=== PATIENT | male | born 1960 | race African-American/Black ===

== ENCOUNTER 2022-11-03 10:21 | Emergency (ER) | payer OTHER ==
[~2022-11-03] VITALS: Ht 177.8 cm; Wt 98.9 kg
--- NOTE | 2022-11-03 11:01 | NUR ---
pt BIBA complaining of CP. pt sleeping, Diffcult to arouse, responding to painful stimuli follows commands
--- NOTE | 2022-11-03 11:05 | NUR ---
xray at bedside
--- NOTE | 2022-11-03 11:12 | NUR ---
urine sample collected and sent to lab
--- NOTE | 2022-11-03 11:14 | NUR ---
patient taken to ct via [facility]ap[facility]
[2022-11-03 11:18] LABS: CALCIUM, SERUM 9.7 mg/dL (8.5-10.1); CARBON DIOXIDE 22 mmol/L (21-32); CHLORIDE 100 mmol/L (98-107); GLUCOSE 194 mg/dL (74-106); POTASSIUM 3.9 mmol/L (3.5-5.1); SERUM AMMONIA 11 umol/L (11-32); SODIUM SERUM 137 mmol/L (136-145); UREA NITROGEN, BLOOD 23 mg/dL (7-18)
[2022-11-03 11:21] LABS: ALANINE AMINOTRANSFERASE 36 U/L (12-78); ALBUMIN 3.9 g/dL (3.4-5.0); ALKALINE PHOSPHATASE 62 U/L (46-116); ASPARTATE AMINOTRANSFERASE 25 U/L (15-37); BILIRUBIN,DIRECT 0.1 mg/dL (0.0-0.2); BILIRUBIN,TOTAL 0.3 mg/dL (0.2-1.0); TOTAL PROTEIN, SERUM 7.8 g/dL (6.4-8.2)
[2022-11-03 11:24] LABS: BASOPHILS % (AUTO) 0.6 % (0.0-2.0); EOSINOPHILS % (AUTO) 0.8 % (0.0-6.0); HEMATOCRIT 46 % (39-51); LYMPHOCYTES # (AUTO) 3.4 K/uL (0.8-4.8); MEAN CORPUSCULAR HGB CONC 33 g/dl (31.0-36.0); MEAN CORPUSCULAR VOLUME 97 fL (80-96); MONOCYTES # (AUTO) 0.5 K/uL (0.1-1.30); MONOCYTES % (AUTO) 6.4 % (2.0-12.0); NEUTROPHILS # (AUTO) 3.6 K/uL (1.8-8.9); NEUTROPHILS % (AUTO) 47.2 % (43.0-81.0); PLATELET COUNT (AUTO) 228 K/uL (150-450); RED BLOOD CELL COUNT(AUTO) 4.76 MIL/uL (4.5-6.0); WHITE BLOOD COUNT (AUTO) 7.5 K/uL (4.3-11.0)
[2022-11-03 11:29] LABS: ALCOHOL, BLOOD < 3 mg/dL (0-10)
[2022-11-03 11:49] LABS: BILIRUBIN,URINE NEGATIVE (NEGATIVE); COLOR,URINE YELLOW (YELLOW); LEUKOCYTE ESTERASE ,URINE NEGATIVE (NEGATIVE); NITRITE, URINE NEGATIVE (NEGATIVE); PH,URINE 6.5 (5.0-8.0); PROTEIN,URINE NEGATIVE (NEGATIVE); UGLUCOSE 3+ mg/dL (NEGATIVE); UROBILINOGEN,URINE 0.2 EU/dL (0.2)
[2022-11-03 11:51] LABS: BACTERIA,URINE Rare /HPF (None Seen); RBC,URINE 0-2 /HPF (0-2); SQUAMOUS EPITHELIAL CELL,UR Few /HPF (None Seen); WBC,URINE 0-2 /HPF (0-3)
--- NOTE | 2022-11-03 11:58 | NUR ---
lab reported critical lab. lactic acid 4.3
[2022-11-03 12:02] LABS: THYROID STIMULATING HORMONE 0.794 uIU/mL (0.358-3.74)
[2022-11-03] MEDS ORDERED: PIPERACILLIN /TAZOBACTAM 3.375 G in IV D5W 50 ML IV ONE (12:30)
[2022-11-03] MEDS ORDERED: IV NS 0.9% 1,000 ML BAG IV ONE (12:30)
[2022-11-03] MEDS ORDERED: VANCOMYCIN 1 GM in IV D5W 250 ML IV ONE (12:30)
--- NOTE | 2022-11-03 13:02 | NUR ---
ASIYA [phone] FROM [facility] CALLED FOR UPDATED CLINICALS. FAX TO [phone]
--- NOTE | 2022-11-03 13:26 | NUR ---
critical lab reported. troponin 111
[2022-11-03] MEDS ORDERED: ASPIRIN 300 MG/SUPP.RECT RC ONE ×2 (13:30→13:34)
--- NOTE | 2022-11-03 14:26 | NUR ---
CALL FROM SÁNCHEZ BRADEN CM, PATIENT ACCEPTED AT [facility] BY DR SHAW,REPORT TO [phone]. TRANSPORT WILL BE ARRANGED BY HER
--- NOTE | 2022-11-03 14:27 | NUR ---
lab called with critical results. troponin level 436
[2022-11-03 14:31] VITALS: BP 125/78
--- NOTE | 2022-11-03 14:46 | NUR ---
report given to FLORESITA Rouse at [facility] for continuation of care
--- NOTE | 2022-11-03 14:56 | NUR ---
RECIEVED A CALL FROM ASIYA WOO AND WAS NOTIFIED THAT THE ETA FOR TRANSPORT IS 1600
--- NOTE | 2022-11-03 16:08 | NUR ---
transport at patient's bedside
== END 2022-11-03 16:34 | disposition short-term general hospital (02) ==
LOC: ER 10:23
DX: I21.4 Non-ST elevation (NSTEMI) myocardial infarction (principal); R07.9 Chest pain, unspecified; N17.9 Acute kidney failure, unspecified; E11.65 Type 2 diabetes mellitus with hyperglycemia; R41.82 Altered mental status, unspecified; F12.929 Cannabis use, unspecified with intoxication, unspecified; E87.20 Acidosis, unspecified; I10 Essential (primary) hypertension; Z60.2 Problems related to living alone; Z20.822 Contact with and (suspected) exposure to COVID-19
CPT/HCPCS: 99291; 96365; 96368; 93005; 87040 ×3; 71045; 70450; 82140; 85025; 80048; 83605 ×2; 80076; 85378; 81001; 36415; 84443; 84484 ×3; 87081; 83880; 87426; 80143; 80320; 80307; J3370; J2543; J7060; J7030 ×3; J7050; C9803; G0480

== ENCOUNTER 2024-12-02 09:42 | Emergency (ER) | payer OTHER, MEDICAID ==
[~2024-12-02] VITALS: Ht 172.7 cm; Wt 97.5 kg
[2024-12-02 09:53] VITALS: TEMP 98.1
[2024-12-02 10:38] LABS: PLATELET COUNT (AUTO) 477 K/uL (150-450); RED BLOOD CELL COUNT(AUTO) 4.71 MIL/uL (4.5-6.0); RED CELL DISTRIBUTION WIDTH 14.3 % (11.5-15.0); WHITE BLOOD COUNT (AUTO) 5.6 K/uL (4.3-11.0)
[2024-12-02 10:50] LABS: CALCIUM, SERUM 9.4 mg/dL (8.5-10.1); CREATININE 1.3 mg/dL (0.6-1.3); SODIUM SERUM 133.0 mmol/L (136-145); UREA NITROGEN, BLOOD 24.0 mg/dL (7-18)
[2024-12-02 12:21] VITALS: BP 118/70; O2SAT 99
== END 2024-12-02 11:36 | disposition home or self-care (01) ==
LOC: ER 09:42
DX: M79.662 Pain in left lower leg (principal); R22.42 Localized swelling, mass and lump, left lower limb; M79.605 Pain in left leg; E11.9 Type 2 diabetes mellitus without complications; I10 Essential (primary) hypertension; Z86.69 Personal history of other diseases of the nervous system and sense organs; Z86.73 Personal history of transient ischemic attack (TIA), and cerebral infarction without residual deficits; Z60.2 Problems related to living alone
CPT/HCPCS: 36415; 73590-TC; 80048-TC; 82962-TC; 85025-TC; 93971-TC

== ENCOUNTER 2025-01-05 21:03 | Emergency (ER) | payer OTHER, MEDICAID | END 2025-01-05 23:10 | disposition left against medical advice (07) | LOC: ER 21:28 | DX: Z53.21 Procedure and treatment not carried out due to patient leaving prior to being seen by health care provider (principal) ==

== ENCOUNTER 2025-05-17 16:40 | Inpatient (IN) | payer OTHER, MEDICAID ==
[~2025-05-17] VITALS: Ht 172.7 cm; Wt 90.7 kg
[2025-05-17] MEDS: IV NS 0.9% 1,000 ML BAG IV ONE (17:20)
[2025-05-17 17:35] LABS: PLATELET COUNT (AUTO) 235 K/uL (150-450); RED BLOOD CELL COUNT(AUTO) 5.39 MIL/uL (4.5-6.0); RED CELL DISTRIBUTION WIDTH 13.7 % (11.5-15.0); WHITE BLOOD COUNT (AUTO) 3.8 K/uL (4.3-11.0)
[2025-05-17 17:42] LABS: CALCIUM, SERUM 8.5 mg/dL (8.5-10.1); CREATININE 1.8 mg/dL (0.6-1.3); SODIUM SERUM 121 mmol/L (136-145); UREA NITROGEN, BLOOD 54 mg/dL (7-18)
[2025-05-17 17:54] LABS: ASPARTATE AMINOTRANSFERASE 408 U/L (15-37); TOTAL PROTEIN, SERUM 7.7 g/dL (6.4-8.2)
[2025-05-17 19:58] LABS: APPEARANCE,URINE CLEAR (CLEAR); BLOOD, URINE Moderate Ery/uL (NEGATIVE); LEUKOCYTE ESTERASE ,URINE Negative (NEGATIVE); NITRITE, URINE NEGATIVE (NEGATIVE); UGLUCOSE 250 MG/DL mg/dL (NEGATIVE)
[2025-05-17 20:04] LABS: ADD URINE CULTURE NO; SQUAMOUS EPITHELIAL CELL,UR None Seen /HPF (None Seen)
[2025-05-17] MEDS ORDERED: MAG HYDROX/AL HYDROX/SIMETH 30 ML UDC PO PRN (21:00)
[2025-05-17] MEDS ORDERED: Z GUARD REMEDY 4 OZ OINT TP PRN (21:00)
[2025-05-17] MEDS ORDERED: ONDANSETRON HCL/PF 4 MG/2 ML VIAL IVP PRN (21:00)
[2025-05-17] MEDS ORDERED: MAGNESIUM HYDROXIDE 30 ML UDC PO PRN (21:00)
[2025-05-17] MEDS: IV NS 0.9% 1,000 ML IV PRN (21:40)
[2025-05-17] MEDS: SODIUM POLYSTYRENE SULFONATE 15 G/60 ML BOTTLE PO ONE (21:57)
[2025-05-17 22:00] VITALS: BP 139/87; TEMP 97.5; O2SAT 99
[2025-05-17] MEDS: BLOOD SUGAR DIAGNOSTIC 1 EACH STRIP IN SCH (22:09)
[2025-05-17] MEDS: DEXTROSE 50%-WATER 50 ML DISP.SYRIN IV PRN (22:09)
[2025-05-17] MEDS: ACETAMINOPHEN 325 MG TABLET PO PRN (22:45)
[2025-05-18] VITALS (7 sets, daily range): BP systolic 139–170; BP diastolic 87–104; TEMP 97.5–98.4; O2SAT 96–100
[2025-05-18] MEDS: HYDROCODONE/APAP 5/325MG TABLET PO PRN (01:27)
[2025-05-18] MEDS: hydrALAZINE HCL IV 20 MG VIAL IV PRN (05:23)
[2025-05-18 06:35] LABS: PLATELET COUNT (AUTO) 264 K/uL (150-450); RED BLOOD CELL COUNT(AUTO) 5.53 MIL/uL (4.5-6.0); RED CELL DISTRIBUTION WIDTH 14.0 % (11.5-15.0); WHITE BLOOD COUNT (AUTO) 5.3 K/uL (4.3-11.0)
[2025-05-18] MEDS: PANTOPRAZOLE 40 MG TABLET.DR PO SCH (06:39)
[2025-05-18] MEDS: INSULIN REGULAR, HUMAN 100 UNIT/ML 3 ML VIAL SQ PRN (06:53)
[2025-05-18 08:11] LABS: CALCIUM, SERUM 8.6 mg/dL (8.5-10.1); CREATININE 1.3 mg/dL (0.6-1.3); PHOSPHORUS 3.0 mg/dL (2.5-4.9); SODIUM SERUM 127.0 mmol/L (136-145); UREA NITROGEN, BLOOD 43.0 mg/dL (7-18)
[2025-05-18 08:23] LABS: LDL 17.0 mg/dL (0-99)
[2025-05-18] MEDS: ASPIRIN 81 MG TAB.CHEW PO SCH (08:44)
[2025-05-18] MEDS ORDERED: AMLO-212 PO (09:53)
[2025-05-18] MEDS ORDERED: TRAM50TA PO (09:53)
[2025-05-18] MEDS ORDERED: CLON0.3T PO (09:53)
[2025-05-18] MEDS ORDERED: GABA-532 PO (09:53)
[2025-05-18] MEDS ORDERED: EMPA25TA PO (09:53)
[2025-05-18] MEDS ORDERED: COLC0.6T67 PO (09:53)
[2025-05-18] MEDS ORDERED: OMEP40CA21 PO (09:53)
[2025-05-18] MEDS ORDERED: ATOR80TA PO (09:53)
[2025-05-18] MEDS ORDERED: GLIM2TAB31 PO (09:53)
[2025-05-18] MEDS ORDERED: HYDR-4076 PO (09:53)
[2025-05-18] MEDS ORDERED: ICOS1CAP PO (09:53)
[2025-05-18] MEDS ORDERED: SPIR25TA6 PO (09:53)
[2025-05-18] MEDS ORDERED: LEVE500T20 PO (09:53)
[2025-05-18] MEDS ORDERED: METF-442 PO (09:53)
[2025-05-18] MEDS ORDERED: DOXA4TAB3 PO (09:53)
[2025-05-18] MEDS: SODIUM ZIRCONIUM CYCLOSILICATE 10 GM POWD.PACK PO ONE (10:45)
[2025-05-18 16:48] LABS: CALCIUM, SERUM 8.6 mg/dL (8.5-10.1); CREATININE 1.4 mg/dL (0.6-1.3); SODIUM SERUM 128.0 mmol/L (136-145); UREA NITROGEN, BLOOD 39.0 mg/dL (7-18)
[2025-05-19] VITALS: BP 160/90; TEMP 98.1; O2SAT 97
[2025-05-19 04:00] VITALS: BP 148/89; TEMP 97.7; O2SAT 100
[2025-05-19 07:00] LABS: PLATELET COUNT (AUTO) 257 K/uL (150-450); RED BLOOD CELL COUNT(AUTO) 5.07 MIL/uL (4.5-6.0); RED CELL DISTRIBUTION WIDTH 13.9 % (11.5-15.0); WHITE BLOOD COUNT (AUTO) 4.6 K/uL (4.3-11.0)
[2025-05-19 07:13] LABS: CALCIUM, SERUM 8.5 mg/dL (8.5-10.1); CREATININE 1.4 mg/dL (0.6-1.3); SODIUM SERUM 131.0 mmol/L (136-145); UREA NITROGEN, BLOOD 34.0 mg/dL (7-18)
[2025-05-19 08:00] VITALS: BP 159/90; TEMP 98.2; O2SAT 100
[2025-05-19 12:00] VITALS: BP 178/90; TEMP 97.9; O2SAT 96
[2025-05-19] MEDS: AMLODIPINE BESYLATE 5 MG TABLET PO SCH (15:04)
[2025-05-19 16:00] VITALS: BP 171/93; TEMP 97.8; O2SAT 100
[2025-05-19] MEDS: METFORMIN 500 MG TABLET PO SCH (16:49)
[2025-05-19] MEDS: COLCHICINE 0.6 MG TABLET PO SCH (16:49)
[2025-05-19 20:00] VITALS: BP 159/97; TEMP 98.8; O2SAT 96
[2025-05-19] MEDS: LEVETIRACETAM (250 MG) 250 MG TABLET PO SCH (21:22)
[2025-05-19] MEDS: HEPARIN SODIUM, PORCINE 5000 UNITS/1 ML VIAL SQ SCH (21:24)
[2025-05-20] VITALS: BP 144/83; TEMP 98.5; O2SAT 95
[2025-05-20 04:00] VITALS: BP 139/76; TEMP 98.1; O2SAT 98
[2025-05-20 08:00] VITALS: BP 155/89; TEMP 97.8; O2SAT 98
[2025-05-20 08:32] LABS: PLATELET COUNT (AUTO) 263 K/uL (150-450); RED BLOOD CELL COUNT(AUTO) 5.15 MIL/uL (4.5-6.0); RED CELL DISTRIBUTION WIDTH 13.8 % (11.5-15.0); WHITE BLOOD COUNT (AUTO) 4.6 K/uL (4.3-11.0)
[2025-05-20 08:38] LABS: CALCIUM, SERUM 8.9 mg/dL (8.5-10.1); CREATININE 1.3 mg/dL (0.6-1.3); SODIUM SERUM 133.0 mmol/L (136-145); UREA NITROGEN, BLOOD 30.0 mg/dL (7-18)
[2025-05-20 08:44] LABS: LDL 16.0 mg/dL (0-99)
[2025-05-20] MEDS: ATORVASTATIN 40 MG TABLET PO SCH (08:58)
[2025-05-20] MEDS: GABAPENTIN 300 MG CAPSULE PO PRN (09:00)
[2025-05-20] MEDS: DOXAZOSIN MESYLATE (4 MG) 4 MG TABLET PO SCH (09:01)
[2025-05-20] MEDS: EMPAGLIFLOZIN 25 MG TABLET PO SCH (09:05)
[2025-05-20] MEDS: GLIMEPIRIDE 1 MG TABLET PO SCH (09:13)
[2025-05-20] MEDS: GABAPENTIN 300 MG CAPSULE PO SCH (10:00)
[2025-05-20] MEDS: NIFEDIPINE XL 60 MG TAB.ER.24 PO SCH (10:39)
[2025-05-20 12:00] VITALS: BP 153/88; TEMP 97.8; O2SAT 98
[2025-05-20 16:00] VITALS: BP 139/78; TEMP 97.3; O2SAT 100
[2025-05-20 20:00] VITALS: BP 123/63; TEMP 98.8; O2SAT 98
[2025-05-21] MEDS: SODIUM POLYSTYRENE SULFONATE 15 G/60 ML BOTTLE PO ONE (01:03)
[2025-05-21 04:00] VITALS: BP 158/95; TEMP 98.2; O2SAT 97
[2025-05-21 07:57] LABS: PLATELET COUNT (AUTO) 242 K/uL (150-450); RED BLOOD CELL COUNT(AUTO) 4.98 MIL/uL (4.5-6.0); RED CELL DISTRIBUTION WIDTH 14.0 % (11.5-15.0); WHITE BLOOD COUNT (AUTO) 4.9 K/uL (4.3-11.0)
[2025-05-21 08:00] VITALS: BP 151/89; TEMP 97.5; O2SAT 99
[2025-05-21 08:14] LABS: CALCIUM, SERUM 9.2 mg/dL (8.5-10.1); CREATININE 1.3 mg/dL (0.6-1.3); SODIUM SERUM 129.0 mmol/L (136-145); UREA NITROGEN, BLOOD 32.0 mg/dL (7-18)
[2025-05-21] MEDS ORDERED: CLONIDINE HCL 0.1 MG TABLET PO PRN (10:30)
[2025-05-21 10:32] VITALS: O2SAT 96
[2025-05-21 11:06] VITALS: BP 144/97
[2025-05-21] MEDS: CARVEDILOL 12.5 MG TABLET PO SCH (11:24)
[2025-05-21] MEDS ORDERED: SODIUM ZIRCONIUM CYCLOSILICATE 10 GM POWD.PACK PO SCH (13:00)
[2025-05-21 14:48] LABS: CALCIUM, SERUM 8.8 mg/dL (8.5-10.1); CREATININE 1.5 mg/dL (0.6-1.3); SODIUM SERUM 129.0 mmol/L (136-145); UREA NITROGEN, BLOOD 33.0 mg/dL (7-18)
[2025-05-21 16:00] VITALS: BP 123/86; TEMP 97.3; O2SAT 99
[2025-05-21] MEDS: IV NS 0.9% 1,000 ML IV PRN (16:39)
[2025-05-21] MEDS: NIFEDIPINE XL 60 MG TAB.ER.24 PO SCH (17:55)
[2025-05-21 20:00] VITALS: BP 141/88; TEMP 97; O2SAT 99
[2025-05-21 20:05] LABS: POTASSIUM RNDM,URINE 40 mmol/L (25-125); URINE SODIUM, RANDOM 71 mmol/l (40-220)
[2025-05-22 04:00] VITALS: BP 147/87; TEMP 97.7; O2SAT 98
[2025-05-22 07:02] LABS: PLATELET COUNT (AUTO) 249 K/uL (150-450); RED BLOOD CELL COUNT(AUTO) 4.80 MIL/uL (4.5-6.0); RED CELL DISTRIBUTION WIDTH 14.0 % (11.5-15.0); WHITE BLOOD COUNT (AUTO) 4.3 K/uL (4.3-11.0)
[2025-05-22 07:13] LABS: CALCIUM, SERUM 8.4 mg/dL (8.5-10.1); CREATININE 1.4 mg/dL (0.6-1.3); PHOSPHORUS 3.7 mg/dL (2.5-4.9); SODIUM SERUM 135.0 mmol/L (136-145); UREA NITROGEN, BLOOD 33.0 mg/dL (7-18)
[2025-05-22 08:00] VITALS: BP 144/78; TEMP 98.1; O2SAT 98
[2025-05-22] MEDS: ATORVASTATIN 40 MG TABLET PO SCH (08:28)
[2025-05-22 16:00] VITALS: BP 128/71; TEMP 98.7; O2SAT 98
[2025-05-22 20:00] VITALS: BP 115/76; TEMP 97.5; O2SAT 98
[2025-05-23 04:00] VITALS: BP 144/84; TEMP 97.9; O2SAT 100
[2025-05-23 08:00] VITALS: BP 148/80; TEMP 97.9; O2SAT 98
[2025-05-23 11:10] LABS: CORTISOL AM 12.2 ug/dL (6.2-19.4)
[2025-05-23] MEDS ORDERED: CARV12.52 PO (11:59)
[2025-05-23] MEDS ORDERED: NIFE-34 PO (11:59)
[2025-05-23] MEDS: CARVEDILOL 12.5 MG TABLET PO ONE (12:02)
[2025-05-23 13:07] LABS: ACTH, PLASMA 10.8 pg/mL (7.2-63.3)
[2025-05-23] MEDS: CARVEDILOL 12.5 MG TABLET PO SCH (16:07)
[2025-05-23 16:15] VITALS: BP 135/75; TEMP 98; O2SAT 98
[2025-05-23 16:24] LABS: PLATELET COUNT (AUTO) 241 K/uL (150-450); RED BLOOD CELL COUNT(AUTO) 4.83 MIL/uL (4.5-6.0); RED CELL DISTRIBUTION WIDTH 14.1 % (11.5-15.0); WHITE BLOOD COUNT (AUTO) 4.0 K/uL (4.3-11.0)
[2025-05-23 16:47] LABS: CALCIUM, SERUM 8.6 mg/dL (8.5-10.1); CREATININE 1.5 mg/dL (0.6-1.3); SODIUM SERUM 132.0 mmol/L (136-145); UREA NITROGEN, BLOOD 26.0 mg/dL (7-18)
[2025-05-23 20:00] VITALS: BP 135/52; TEMP 97.6; O2SAT 98
[2025-05-24 04:00] VITALS: BP 145/83; TEMP 98.1; O2SAT 98
[2025-05-24 06:49] LABS: PLATELET COUNT (AUTO) 233 K/uL (150-450); RED BLOOD CELL COUNT(AUTO) 4.51 MIL/uL (4.5-6.0); RED CELL DISTRIBUTION WIDTH 14.0 % (11.5-15.0); WHITE BLOOD COUNT (AUTO) 4.8 K/uL (4.3-11.0)
[2025-05-24 07:27] LABS: ASPARTATE AMINOTRANSFERASE 71.0 U/L (15-37); CALCIUM, SERUM 8.3 mg/dL (8.5-10.1); CREATININE 1.1 mg/dL (0.6-1.3); PHOSPHORUS 2.7 mg/dL (2.5-4.9); SODIUM SERUM 135.0 mmol/L (136-145); TOTAL PROTEIN, SERUM 6.0 g/dL (6.4-8.2); UREA NITROGEN, BLOOD 24.0 mg/dL (7-18)
[2025-05-24 08:00] VITALS: BP 146/77; TEMP 97.9; O2SAT 100
[2025-05-24 08:19] VITALS: BP 146/77
[2025-05-24] MEDS: MAGNESIUM OXIDE 400 MG TABLET PO ONE (10:26)
== END 2025-05-24 15:00 | DRG 682 ==
LOC: ER 16:54 → TELE1 20:21 → MEDSG1 05-20 09:26
PROVIDERS: ADMIT Nurse Practitioner Acute Care; ATTEND Nurse Practitioner Acute Care
DX: N17.9 Acute kidney failure, unspecified (principal); I21.A1 Myocardial infarction type 2; K85.90 Acute pancreatitis without necrosis or infection, unspecified; E87.20 Acidosis, unspecified; I69.354 Hemiplegia and hemiparesis following cerebral infarction affecting left non-dominant side; I12.9 Hypertensive chronic kidney disease with stage 1 through stage 4 chronic kidney disease, or unspecified chronic kidney disease; E11.22 Type 2 diabetes mellitus with diabetic chronic kidney disease; E66.9 Obesity, unspecified; E87.1 Hypo-osmolality and hyponatremia; N13.8 Other obstructive and reflux uropathy; J98.11 Atelectasis; N13.9 Obstructive and reflux uropathy, unspecified; N18.2 Chronic kidney disease, stage 2 (mild); E86.0 Dehydration; E87.5 Hyperkalemia; N40.1 Benign prostatic hyperplasia with lower urinary tract symptoms; R33.8 Other retention of urine; E11.42 Type 2 diabetes mellitus with diabetic polyneuropathy; I69.323 Fluency disorder following cerebral infarction; Z68.31 Body mass index [BMI] 31.0-31.9, adult; T46.5X5A Adverse effect of other antihypertensive drugs, initial encounter; T50.0X5A Adverse effect of mineralocorticoids and their antagonists, initial encounter; Y92.039 Unspecified place in apartment as the place of occurrence of the external cause; N28.1 Cyst of kidney, acquired; R19.7 Diarrhea, unspecified
CPT/HCPCS: 36415; 71045-TC; 76770-TC; 80048-TC; 80053-TC; 80061-TC; 80076-TC; 81001; 82024; 82436-TC; 82533; 82962-TC; 83690-TC; 83735-TC; 83935-TC; 84100-TC; 84133-TC; 84300-TC; 84443-TC; 84484-TC; 84550-TC; 85025-TC; 87045-TC; 93307-TC; 97110-TC; 97116-TC; 97530-TC; A4223; G0378; J0360; J1644; J1815; J7030